=== PATIENT | female | born 1955 ===

== ENCOUNTER 2021-04-05 06:01 | Day surgery (SDC) | payer OTHER, SELFPAY ==
--- NOTE | 2021-04-02 16:06 | HP_ITS ---
DATE OF SERVICE: 04/05/2021 PREOPERATIVE DIAGNOSES: 1. Hallux abductovalgus deformity, right foot. 2. Tailor's bunion, right foot. PLANNED PROCEDURE: Modified Chen bunionectomy in right foot and a partial fifth metatarsal head excision in right foot. 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 CURRENT MEDICATIONS: None. SURGICAL HISTORY: Bilateral mastectomy and tubal ligation. FAMILY HISTORY: Significant for diabetes, hypertension. SOCIAL HISTORY: The patient is a nonsmoker. Denies any drug use or any alcohol use. She is , has 4 children and works as a nurse at [employer]. ALLERGIES: SHE HAS NO KNOWN DRUG ALLERGIES. HOSPITALIZATIONS: Denies. REVIEW OF SYSTEMS: Within normal limits. HISTORY OF PRESENT ILLNESS: The patient is a 66-year-old female, who presents with pain, aching, and tenderness in her great toe joint as well as the outside of the forefoot of the right foot for several years. It has been gradually getting worse. She has tried change in shoes, rest, without any significant relief in symptoms. PHYSICAL EXAMINATION: GENERAL: Reveals a pleasant, alert, well-nourished, well-developed, well-hydrated individual, whodemonstrates proper attention to hygiene and body habitus. No acute distress. She is oriented x3. NEUROLOGIC: Reveals intact sensorium. Pain sensation is normal. Vibratory sensation is intact. Denies any anesthesias, burning, paresthesias, or tingling bilaterally. VASCULAR: DP and PT pulses are 3/4 bilaterally. Capillary refill is immediate to all digits. Skin temperature is warm to cool, proximal to distal. Hair growth is normal. Pigmentation is normal. There is no edema. DERMATOLOGIC: Reveals normal texture, elasticity, and turgor. There are no masses. Interspaces are clear. ORTHOPEDIC: Reveals muscle strength 5/5 for all groups in a symmetrical fashion bilaterally. There is a bunion deformity with a medially prominent first metatarsophalangeal joint, erythema and exostosis, lateral tracking of the first MPJ is reducible on the right foot. There is also a tailor's bunion, which shows prominent painful inflamed fifth metatarsal head MPJ of the right foot. PLAN: Several types of surgery were discussed with the patient in detail, including but not limited to modified Chen bunionectomy, Grayson bunionectomy, shaft versus based wedge versus Lapidus bunionectomy. We discussed the risks of having surgery versus not having surgery as well as potential surgical complications including, but not limited to pain; swelling; bleeding; scarring; numbness; infection; delayed or nonhealing; floppy toe; unstable toe; shortened toe; recurrence; failure of the procedure; over-correction; need for further surgery; as well as possibility of loss of toe, foot, life, or limb. We discussed the use of IV and local anesthesia, and the usual postoperative course. No guarantees were given. The patient verbally indicated a full understanding of the above conversation. All questions were answered to her satisfaction. We decided on performing a modified Chen bunionectomy and tailor's bunionectomy with a partial fifth metatarsal head resection based on the patient's complaints, medical history, social history, as well as x-ray analysis. The patient will obtain preoperative labs as well as medical clearance for surgery and anesthesia. The patient was made aware to stop any and all blood thinners including fish oil and [id number] aspirin at least 1 week prior to surgery. She is made aware of the fact that driving may not be allowed during a portion of the postoperative period and not to utilize any smoking tobacco products to facilitate bone healing. The [employer] was checked prior to the prescription for narcotic pain medication. Patient can half fill the prescription as needed. She was given a prescription for Percocet 5/325 mg. The patient will be partial weightbearing to the right foot with a surgical shoe and crutches. She will follow up in my office for all postoperative followup care. LUCA Bain / [id number] JOY
[2021-04-03 11:16] VITALS: BMI 39.1
[2021-04-05 06:18] VITALS: BP 119/48; PULSE 73; RESP 16; TEMP 36.7; O2SAT 97
[2021-04-05] MEDS: Lactated Ringers 1,000 ML 50 ML IVCONT (06:36)
--- NOTE | 2021-04-05 07:29 | P.CONAN_ITS ---
[facility] Past Medical History Medical History HX: breast cancer Raynaud's disease Surgical History Surgical History Hx of bilateral mastectomy Social History Social History Patient Tobacco Use Status: Never used Tobacco Use of substances other than those prescribed or required for medical reasons: No Are you DNR?: No Advance Directives: No Advance Directives Information Provided: No Advance Directives on File: No Meds Allergies Allergy/AdvReac Type Severity Reaction Status Date / Time No Known Allergies Allergy Verified 04/03/21 11:15 Home Medications Medication Instructions Recorded Confirmed Last Taken Type No Known Home Meds 04/03/21 04/03/21 Unknown History Exam Exam Date and Time: April 05, 2021 0729 Height,Weight and Vital Signs: Height 5 ft 7 in Weight 250 lb Last Vital Signs Temp 98.1 F 04/05/21 06:18 Pulse 73 04/05/21 06:18 Resp 16 04/05/21 06:18 BP 119/48 L 04/05/21 06:18 Pulse Ox 97 04/05/21 06:18 Airway Mallampati Class: II TM Dist: >3cm Neck ROM: Full Partial: Upper and Lower Loose/Missing/Broken Teeth: No Heart: RRR Lungs: NL Assessment and Plan Assessment Anesthesia Assessment: Anesthesia Plan Discussed and Chart Reviewed Final Anesthetic Review NPO: Yes ASA Class: II Final Preanesthetic Review: No Changes in Pt Med Stat, Meds/Allgs Chart Reviewed, Consent Obtained/Reviewed and Anes Risks/Benef Reviewed Patient Risk: Low Procedure Risk: Low Anesthetic Plan Anesthetic Plan: MAC: Disposition: Standard PACU
--- NOTE | 2021-04-05 07:43 | MHC.SHP ---
Pre-Procedural Eval Section A Date of Service: 04/05/21 The patient is an INPATIENT: No Changes since office visit: No Cold of Flu in the past 2 weeks, No New Medical Problems, No Changes in Medication and No Patient answered all questions The History & Physical has been completed within 30 days and I have reviewed it.: Yes Section B Chief Complaint: hallux Allergies: Allergies Allergy/AdvReac Type Severity Reaction Status Date / Time No Known Allergies Allergy Verified 04/03/21 11:15 Plan I have reviewed the history and physical and performed a pertinent physical examination on my patient. No changes have occurred unless specified.
--- NOTE | 2021-04-05 08:42 | PM.OP ---
Brief Operative Note Date of Service: 04/05/21 Pre-op diagnosis: Hallux abductovalgus and tailor's bunion right foot Post-op diagnosis: same Procedure: Right Modified Chen Bunionectomy and partial 5th metatarsal head resection Implants: None Surgeon: Tamia Bernal Anesthesia: MAC and local Was an Intellectual Property Legal Assistant used for this Procedure?: Yes Intellectual Property Legal Assistant: Jesus Ceja Estimated blood loss (mL): 10 Tourniquet time (min): 34 Pathology: other Condition: stable Disposition: PACU
[2021-04-05 08:47] VITALS: BP 119/59; PULSE 79; RESP 14; TEMP 36.8; O2SAT 99
[2021-04-05 09:02] VITALS: BP 134/66; PULSE 74; RESP 16; TEMP 36.8; O2SAT 99
--- NOTE | 2021-06-14 14:12 | OP_ITS ---
SURGEON: Tamia Bernal DPM PREOPERATIVE DIAGNOSES: 1. Hallux abductovalgus deformity of the right foot. 2. Tailor's bunion, right foot. POSTOPERATIVE DIAGNOSES: 1. Hallux abductovalgus deformity of the right foot. 2. Tailor's bunion, right foot. PROCEDURES PERFORMED: 1. Modified Chen bunionectomy, right foot. 2. Partial fifth metatarsal head resection, right foot. COMPLICATIONS: None. ANESTHESIA: Monitored anesthetic care with local consisting preoperatively of 1:1 mixture of 2% lidocaine plain and 0.5% Marcaine plain. SPECIMENS: Bone, right foot. DRY CLEANER: Jesus Ceja DPM HEMOSTASIS: Pneumatic ankle tourniquet set at 220 mmHg for 34 minutes. INDICATIONS FOR SURGERY: The patient had a painful bunion deformity and tailor's bunion noted to the right foot that has been present for some time. The patient has failed conservative therapies. The patient would like to proceed with surgical treatment. The above-mentioned surgery was discussed in detail with the patient including risks, benefits, and possible complications. No guarantees were given, and a written and an oral informed consent was obtained. DESCRIPTION OF PROCEDURE: The patient was brought into the operating room and placed on the operating room table in the supine position. Following IV sedation, the above-mentioned local anesthetic was injected about the right foot in a regional field block fashion. 2 g of cefazolin was administered as a prophylactic antibiotic, and the right foot was scrubbed, prepped, and draped in a sterile manner. The foot was exanguinated and the pneumatic ankle tourniquet was inflatted. Attention was directed to the right foot first of the first metatarsophalangeal joint, where an incision was made overlying the joint and was deepened down to subcutaneous tissue. Great care was taken to retract vital neural and vascular structures and all bleeders were cauterized as necessary. A medial capsulotomy was made medial and parallel to the extensor tendon, and the soft tissues were freed about the head of the first metatarsal. Using a sagittal saw, the medial eminence of the first metatarsal head was resected and passed from my operative site. Via the same incision, attention was directed to the first interspace, where a lateral release was performed. The deep transverse intermetatarsal ligament was transected, the fibular sesamoidal ligament and the head of the adductor tendon allowing the head of the first metatarsal to drift into a more corrected position. Attention was directed back to the first metatarsal, where the wound was irrigated with copious amounts of normal sterile saline. The capsular structures were reapproximated using 3-0 Vicryl in a continuous running fashion. A piece of AmnioFix was placed and the skin was reapproximated with 4-0 Monocryl in a continuous running fashion. A ZipLine was then placed overlying the incision. Attention was directed to the fifth metatarsal head, where an incision was made overlying the fifth metatarsal head, which was deepened down through subcutaneous tissue. Great care was taken to retract vital neural and vascular structures. A capsulotomy was made lateral and parallel to the extensor tendon. Next, the soft tissues were freed about the head of the fifth metatarsal. Using a McGlamry elevator, the soft tissues were freed of the fifth metatarsophalangeal joint. Using a sagittal saw, the lateral eminence was resected and passed from the operative site. The wound was irrigated with normal sterile saline. The capsular structures were reapproximated with 3-0 Vicryl. A piece of AmnioFix was placed and the skin was reapproximated with 4-0 Monocryl in a continuous running fashion and a ZipLine was placed over that. A postoperative injection of 5 mL of 0.5% Marcaine plain and 1 mL of dexamethasone was administered. The incisions were then dressed with Adaptic, 4 x 4's, Betadine-soaked gauze, an ABD pad, Kerlix fluffs, cast padding, and an Preston bandage. The pneumatic ankle tourniquet was deflated after 34 minutes and prompt capillary refill was noted to all 5 digits. The patient tolerated procedure and anesthesia well. The patient was transferred to the recovery room with vital signs stable and vascular status at preoperative levels. Following a period of postoperative recovery, the patient will be discharged home with written and oral postoperative instructions. The patient will follow up in my office for all postoperative followup care. The patient will be partial weightbearing to the right foot with crutches or walker and a surgical shoe and she will follow up in my office. Tamia Bernal DPM LP/CATIE / [id number] JOY
== END 2021-04-05 09:30 | disposition home or self-care (01) ==
PROVIDERS: PCP Internal Medicine; Visit Provider Podiatrist
PROC: (CPT 28292; principal; 2021-04-05 07:30)
DX: M20.11 Hallux valgus (acquired), right foot (principal); M21.621 Bunionette of right foot; I73.00 Raynaud's syndrome without gangrene; Z85.3 Personal history of malignant neoplasm of breast; Z85.41 Personal history of malignant neoplasm of cervix uteri
CPT/HCPCS: 28292; 28308; 88304; 88311; J0690; J1100; J2250; J3590